=== PATIENT | female | born 1995 | race American Indian/Alaskan Native ===

== ENCOUNTER 2016-06-11 00:52 | Emergency (ER) | payer MEDICAID | END 2016-06-11 01:54 | disposition left against medical advice (07) | LOC: ED 00:52 | DX: R07.9 Chest pain, unspecified (principal); Z53.21 Procedure and treatment not carried out due to patient leaving prior to being seen by health care provider | CPT/HCPCS: 93005; 93010 ==

== ENCOUNTER 2016-11-15 15:25 | Emergency (ER) | payer MEDICAID ==
[2016-11-15 16:28] LABS: Basophils % (Auto) 0.8 % (0.0-1.8); Eosinophils % (Auto) 1.5 % (0.0-4.3); Hematocrit 36.2 % (30.3-42.9); Hemoglobin 11.8 gm/dl (10.1-14.3); Mean Corpuscular HGB Conc 33 % (30-34); Mean Corpuscular Hemoglobin 29 pg (28-32); Mean Corpuscular Volume 87 fl (79-97); Platelet Count 198 K/mm3 (140-440); Red Blood Count 4.15 M/mm3 (3.65-5.03); Red Cell Distribution Width 16.3 % (13.2-15.2)
[2016-11-15 16:44] LABS: Alanine Aminotransferase 9 units/L (7-56); Albumin 3.7 g/dL (3.9-5); Albumin/Globulin Ratio 1.2 %; Alkaline Phosphatase 39 units/L (35-129); Anion Gap 17 mmol/L; BUN/Creatinine Ratio 8.75; Blood Urea Nitrogen 7 mg/dL (7-17); Calcium 8.6 mg/dL (8.4-10.2); Carbon Dioxide 22 mmol/L (22-30); Chloride 102.8 mmol/L (98-107); Glucose 110 mg/dL (65-100); Lipase 28 units/L (13-60); Potassium 3.8 mmol/L (3.6-5.0); Sodium 138 mmol/L (137-145); Total Protein 6.7 g/dL (6.3-8.2)
[2016-11-15 17:45] LABS: Bilirubin,Urine NEG (Negative); Blood,Urine NEG (Negative); Ketones,Urine NEG (Negative); Leukocyte Esterase,Urine NEG (Negative); Mucus,Urine FEW /HPF; Nitrite,Urine NEG (Negative); Protein,Urine <15 mg/dL mg/dL (Negative); Urobilinogen,Urine < 2.0 mg/dL (<2.0)
[2016-11-15 17:52] LABS: WBC,Urine < 1.0 /HPF (0.0-6.0)
--- NOTE | 2016-11-15 19:03 | Ultrasound Report ---
FINAL REPORT EXAM: US OB \T\lt; = 14 WEEKS FETUS HISTORY: , pain . LMP unknown. Pelvic pain and cramping. TECHNIQUE: Ultrasound of the pelvis using transabdominal and transvaginal imaging PRIORS: None. FINDINGS: Uterus: Uterus is enlarged in size and normal and homogeneous in echogenicity without focal fibroid formation. The uterus measures 10.2 x 5.9 x 6.9 cm in size. There is a single early viable intrauterine gestation noted. There is a small subchorionic hemorrhage noted measuring 6.8 x 5.1 mm along the right side of the gestational sac. Intrauterine gestation: There is a single intrauterine gestation identified with both a pole and yolk sac. heart rate is monitored at 114 BPM using M-mode doppler. [place]-rump length measurement of 5.6 mm corresponds to estimated age 6 weeks 2 days with EDC 07/09/2017. Ovaries: Both ovaries appear normal in size and echogenicity with normal blood flow bilaterally. The right ovary measures 3.2 x 1.6 x 2.3 cm on the left ovary measures 2.8 x 2.2 x 2.3 cm in size. A 1 cm corpus luteum cyst in the left ovary is noted. Other: There is no evidence for solid adnexal mass is seen. There is no free fluid in the cul-de-sac. IMPRESSION: Single intrauterine viable with an approximate age of 6 weeks 2 days.
--- NOTE | 2016-11-15 20:06 | Emergency Department Report ---
ED Female HPI - General Chief complaint: Urogenital-Female Stated complaint: ABD PAIN Time Seen by Provider: 11/15/16 20:04 Source: patient Mode of arrival: Ambulatory Limitations: No Limitations - History of Present Illness Complaint: vaginal discharge, dysuria, pelvic pain - Related Data Home Medications Medication Instructions Recorded Confirmed Last Taken No Known Home Medications [No 11/05/15 11/05/15 Unknown Reported Home Medications] Allergies Allergy/AdvReac Type Severity Reaction Status Date / Time No Known Allergies Allergy Unverified 11/05/15 00:20 ED Review of Systems ROS: Stated complaint: ABD PAIN Other details as noted in HPI ED Past Medical Hx - Past Medical History Previous Medical History?: No - Surgical History Past Surgical History?: Yes Additional Surgical History: C-Sec 2014, Blood Clots noted in Abd? - Social History Smoking Status: Current Every Day Smoker Substance Use Type: Alcohol, Marijuana - Medications Home Medications: Home Medications Medication Instructions Recorded Confirmed Last Taken Type No Known Home Medications [No 11/05/15 11/05/15 Unknown History Reported Home Medications] ED Physical Exam - General Limitations: No Limitations ED Course Vital Signs 11/15/16 16:01 Temperature 97.1 F L Pulse Rate 80 Respiratory 20 Rate Blood Pressure 110/61 [Right] O2 Sat by Pulse 100 Oximetry ED Medical Decision Making - Lab Data Result diagrams: 11/15/16 16:12 11/15/16 16:12 Critical care attestation.: If time is entered above; I have spent that time in minutes in the direct care of this critically ill patient, excluding procedure time. ED Disposition Condition: Stable Referrals: PRIMARY CARE [Primary Care Provider] - 3-5 Days
[2016-11-15] MEDS ORDERED: BENADRYL PO ONE (20:57)
--- NOTE | 2016-11-15 21:07 | Emergency Department Report ---
Entered by VELVET GUTIÉRREZ, acting as scribe for WENDY MORILLO PA. ED Female HPI - General Chief complaint: Urogenital-Female Stated complaint: ABD PAIN Time Seen by Provider: 11/15/16 20:04 Source: patient Mode of arrival: Ambulatory Limitations: No Limitations - History of Present Illness Initial comments: 21 y/o female with PMHx of blood clots in uterus, constipation, chlamydia and yeast infection, presents to the ED c/o abdominal pain x 2 weeks. Associated symptoms include vaginal discharge (x1 month), nausea and vomiting but she denies diarrhea, vaginal bleeding, fever and chills, no dysuria or increased urinary frequency reported. Pain is described as cramping. Patient is 6 weeks . Reports no OBGYN visits. No alleviating or aggravating factors. NKDA. LMP: 10/10/16. MD Complaint: other (abdominal pain) Onset/Timin -: week(s) Radiation: LLQ Quality: cramping Consistency: constant Improves with: none Worsens with: none Are you Now?: Yes Last Menstrual Period: 10/10/16 EDC: 07/17/17 Associated Symptoms: vaginal discharge, abdominal pain, nausea/vomiting, other. denies: vaginal bleeding, fever/chills - Related Data Sexually active: Yes Previous Rx's Medication Instructions Recorded Last Taken Type Clotrimazole [Unwl-Rnuivvmw-3] 1 applicator VG QHS #1 cream.appl 11/15/16 Unknown Rx Pyridoxine HCl 25 mg PO Q6H PRN #1 bottle 11/15/16 Unknown Rx diphenhydrAMINE [Benadryl CAP] 25 mg PO Q8HR PRN #1 bottle 11/15/16 Unknown Rx Allergies Allergy/AdvReac Type Severity Reaction Status Date / Time No Known Allergies Allergy Unverified 11/05/15 00:20 ED Review of Systems Comment: All other systems reviewed and negative Constitutional: denies: chills, fever Gastrointestinal: abdominal pain, nausea, vomiting. denies: diarrhea Genitourinary: discharge. denies: other (vaginal bleeding ) ED Past Medical Hx - Past Medical History Previous Medical History?: No - Surgical History Past Surgical History?: Yes Additional Surgical History: C-Sec 2014, Blood Clots noted in Abd? - Social History Smoking Status: Current Every Day Smoker Substance Use Type: Alcohol, Marijuana - Medications Home Medications: Home Medications Medication Instructions Recorded Confirmed Last Taken Type Clotrimazole [Vcaj-Tcajrtxw-9] 1 applicator VG QHS #1 cream.appl 11/15/16 Unknown Rx Pyridoxine HCl 25 mg PO Q6H PRN #1 bottle 11/15/16 Unknown Rx diphenhydrAMINE [Benadryl CAP] 25 mg PO Q8HR PRN #1 bottle 11/15/16 Unknown Rx ED Physical Exam - General Limitations: No Limitations (Michelle Gutiérrez present during external/ speculum exam ) General appearance: alert, in no apparent distress - Head Head exam: Present: atraumatic, normocephalic, normal inspection - Eye Eye exam: Present: normal appearance, PERRL, EOMI Pupils: Present: normal accommodation - ENT ENT exam: Present: normal exam, normal orophraynx, mucous membranes moist, TM's normal bilaterally, normal external ear exam - Neck Neck exam: Present: normal inspection, full ROM. Absent: tenderness - Respiratory Respiratory exam: Present: normal lung sounds bilaterally. Absent: respiratory distress, wheezes, rales, rhonchi, chest wall tenderness - Cardiovascular Cardiovascular Exam: Present: regular rate, normal rhythm, normal heart sounds. Absent: systolic murmur, diastolic murmur, rubs, gallop - GI/Abdominal GI/Abdominal exam: Present: soft, normal bowel sounds. Absent: tenderness, guarding, rebound - External exam: Present: normal external exam Speculum exam: Present: normal speculum exam Bi-manual exam: Present: normal bi-manual exam, other (+cottage cheese like discharge in vaginal vault, evidence of bv and vaginal candidiasis). Absent: cervical motion tendernes, adnexal tenderness - Extremities Exam Extremities exam: Present: normal inspection, full ROM. Absent: tenderness, normal capillary refill, pedal edema, joint swelling, calf tenderness - Back Exam Back exam: Present: normal inspection, full ROM. Absent: tenderness, CVA tenderness (R), CVA tenderness (L), muscle spasm, paraspinal tenderness, vertebral tenderness, rash noted - Neurological Exam Neurological exam: Present: alert, oriented X3 - Psychiatric Psychiatric exam: Present: normal affect, normal mood - Skin Skin exam: Present: warm, dry, intact, normal color ED Course Vital Signs 11/15/16 16:01 Temperature 97.1 F L Pulse Rate 80 Respiratory 20 Rate Blood Pressure 110/61 [Right] O2 Sat by Pulse 100 Oximetry ED Medical Decision Making - Lab Data Result diagrams: 11/15/16 16:12 11/15/16 16:12 - Medical Decision Making A/P: , nausea and first trimester, yeast infection 1-patient states she is able to tolerate by mouth fluid but has nausea with food. Will give patient a trial of pyridoxine and Doxylamine, Benadryl when necessary for nausea. I referred to [email or web address] for recommendations on nausea and vomiting treatment in first trimester 2-follow-up with [facility] so single live intrauterine approximately 6 weeks with corresponding hCG level. Patient has no complaints of vaginal bleeding and has no vaginal bleeding on exam 4- on exam pt has evidence of vaginal candidiasis, will tx empirically ED Disposition Clinical Impression: Nausea & vomiting Qualifiers: Vomiting type: unspecified Vomiting Intractability: non-intractable Qualified Code(s): R11.2 - Nausea with vomiting, unspecified Qualifiers: Weeks of gestation: less than 8 weeks Qualified Code(s): Z3A.01 - Less than 8 weeks gestation of Vaginal discharge during Qualifiers: Trimester: first trimester Qualified Code(s): O26.891 - Other specified related conditions, first trimester; N89.8 - Other specified noninflammatory disorders of vagina Disposition: DC-01 TO HOME OR SELFCARE Is pt being admited?: No Does the pt Need Aspirin: No Condition: Stable Instructions: Vulvovaginal Candidiasis (ED), Morning Sickness (ED), ( ED) Prescriptions: Clotrimazole [Sfav-Tdbnxpba-3] 1 applicator VG QHS #1 cream.appl diphenhydrAMINE [Benadryl CAP] 25 mg PO Q8HR PRN #1 bottle PRN Reason: Nausea Pyridoxine HCl 25 mg PO Q6H PRN #1 bottle PRN Reason: Nausea Referrals: [facility] [Provider Group] - 3-5 Days SIMONA SEE MD [Staff Physician] - 3-5 Days Forms: Accompanied Note, Work/School Release Form(ED) Time of Disposition: 21:02 This documentation as recorded by the MARLA ponce ELIZABETH,accurately reflects the service I personally performed and the decisions made by ,WENDY MORILLO PA.
[2016-11-15 21:16] VITALS: BP 105/63
== END 2016-11-15 21:16 | disposition home or self-care (01) ==
LOC: ED 15:25
DX: O21.9 Vomiting of pregnancy, unspecified (principal); O26.891 Other specified pregnancy related conditions, first trimester; R11.0 Nausea; N89.8 Other specified noninflammatory disorders of vagina; F17.200 Nicotine dependence, unspecified, uncomplicated; F12.10 Cannabis abuse, uncomplicated
CPT/HCPCS: 36415; 76801; 76817; 80053; 81001; 83690; 84702; 84703; 85025; 87210; 87591

== ENCOUNTER 2016-12-04 23:25 | Emergency (ER) | payer MEDICAID ==
[2016-12-05 01:24] LABS: Bilirubin,Urine NEG (Negative); Blood,Urine SM (Negative); Ketones,Urine NEG (Negative); Leukocyte Esterase,Urine MOD (Negative); Mucus,Urine 3+ /HPF; Nitrite,Urine NEG (Negative); Protein,Urine <15 mg/dL mg/dL (Negative); Urobilinogen,Urine < 2.0 mg/dL (<2.0)
[2016-12-05 01:43] LABS: Alanine Aminotransferase 10 units/L (7-56); Albumin 4.3 g/dL (3.9-5); Albumin/Globulin Ratio 1.2 %; Alkaline Phosphatase 40 units/L (35-129); Anion Gap 18 mmol/L; BUN/Creatinine Ratio 11.25; Blood Urea Nitrogen 9 mg/dL (7-17); Calcium 9.3 mg/dL (8.4-10.2); Carbon Dioxide 27 mmol/L (22-30); Chloride 99.7 mmol/L (98-107); Glucose 101 mg/dL (65-100); Lipase 17 units/L (13-60); Potassium 4.3 mmol/L (3.6-5.0); Sodium 140 mmol/L (137-145)
[2016-12-05 02:06] LABS: Basophils % (Auto) 0.4 % (0.0-1.8); Eosinophils % (Auto) 0.1 % (0.0-4.3); Hematocrit 39.3 % (30.3-42.9); Hemoglobin 12.8 gm/dl (10.1-14.3); Mean Corpuscular HGB Conc 33 % (30-34); Mean Corpuscular Hemoglobin 29 pg (28-32); Mean Corpuscular Volume 88 fl (79-97); Platelet Count 173 K/mm3 (140-440); Red Blood Count 4.47 M/mm3 (3.65-5.03); Red Cell Distribution Width 16.6 % (13.2-15.2); White Blood Count 7.4 K/mm3 (4.5-11.0)
[2016-12-05 02:34] LABS: INR 1.04 (0.87-1.13)
[2016-12-05 02:35] LABS: Partial Thromboplastin Time 28.9 Sec. (24.2-36.6)
--- NOTE | 2016-12-05 03:40 | Ultrasound Report ---
FINAL REPORT PROCEDURE: US OB \T\lt; = 14 WEEKS FETUS TECHNIQUE: Real-time transabdominal sonography of the uterus, placenta, amniotic fluid, adnexa, and fetus was performed with image documentation. Measurements were obtained to determine age/size. M-mode Doppler was used to document heartbeat. CPT 28185 HISTORY: pain COMPARISON: 11/15/2016 FINDINGS: No intrauterine or ectopic is identified. The uterus measures 9.4 x 3 x 5.8 centimeters. Endometrium measures 11 millimeters in thickness. The right ovary is not identified. The left ovary measures 3 x 2.2 x 3 centimeters. There are cystic follicles. There is no mass or torsion. There is no evidence of ectopic . There is no free pelvic fluid. IMPRESSION: Normal uterus and left ovary. Right ovary is not seen. There is no demonstrated intrauterine or ectopic .
--- NOTE | 2016-12-05 03:43 | Emergency Department Report ---
ED Female HPI - General Chief complaint: Abdominal Pain Stated complaint: N/V/D/DIZZINESS Source: patient, RN notes reviewed, old records reviewed Mode of arrival: Ambulatory Limitations: No Limitations - History of Present Illness Initial comments: This is a 21-year-old female. She is previously unknown to me. Patient seen in this department on 11/15/2016, found to have an intrauterine at that time of 6 weeks and 2 days. The patient reports that she had an elective surgical termination of about a week ago. Since then she has had crampy lower abdominal pain, nausea and vomiting. No fevers or chills. No chest pain or shortness of breath. No irritative or obstructive urinary symptoms. To me she denies right lower quadrant pain. The pain is achy. It increases with palpation and range of motion and It decreases with rest. MD Complaint: vaginal bleeding, pelvic pain -: Gradual Location: suprapubic Quality: cramping Consistency: intermittent Are you Now?: No Associated Symptoms: vaginal discharge, vaginal bleeding, abdominal pain. denies: dysuria - Related Data Sexually active: Yes Previous Rx's Medication Instructions Recorded Last Taken Type Clotrimazole [Dldt-Krthqbms-5] 1 applicator VG QHS #1 cream.appl 11/15/16 Unknown Rx Pyridoxine HCl 25 mg PO Q6H PRN #1 bottle 11/15/16 Unknown Rx diphenhydrAMINE [Benadryl CAP] 25 mg PO Q8HR PRN #1 bottle 11/15/16 Unknown Rx Doxycycline [Vibramycin] 100 mg PO Q12HR #14 capsule 12/05/16 Unknown Rx Ibuprofen [Motrin] 600 mg PO Q8H PRN #30 tablet 12/05/16 Unknown Rx Ondansetron [Zofran Odt] 4 mg PO QID PRN #20 tab.rapdis 12/05/16 Unknown Rx oxyCODONE [Roxicodone] 5 mg PO Q6HR PRN #15 tablet 12/05/16 Unknown Rx Allergies Allergy/AdvReac Type Severity Reaction Status Date / Time No Known Allergies Allergy Unverified 11/05/15 00:20 ED Review of Systems ROS: Stated complaint: N/V/D/DIZZINESS Other details as noted in HPI Constitutional: denies: malaise Eyes: denies: vision change ENT: denies: epistaxis Respiratory: denies: cough Cardiovascular: denies: chest pain Gastrointestinal: abdominal pain Genitourinary: abnormal menses Musculoskeletal: denies: back pain Skin: denies: lesions Neurological: denies: weakness ED Past Medical Hx - Past Medical History Previous Medical History?: No - Surgical History Past Surgical History?: Yes Additional Surgical History: C-Sec 2014, Blood Clots noted in Abd? - Social History Smoking Status: Light Tobacco Smoker Substance Use Type: None - Medications Home Medications: Home Medications Medication Instructions Recorded Confirmed Last Taken Type Clotrimazole [Ijvb-Qvloddbv-9] 1 applicator VG QHS #1 cream.appl 11/15/16 Unknown Rx Pyridoxine HCl 25 mg PO Q6H PRN #1 bottle 11/15/16 Unknown Rx diphenhydrAMINE [Benadryl CAP] 25 mg PO Q8HR PRN #1 bottle 11/15/16 Unknown Rx Doxycycline [Vibramycin] 100 mg PO Q12HR #14 capsule 12/05/16 Unknown Rx Ibuprofen [Motrin] 600 mg PO Q8H PRN #30 tablet 12/05/16 Unknown Rx Ondansetron [Zofran Odt] 4 mg PO QID PRN #20 tab.rapdis 12/05/16 Unknown Rx oxyCODONE [Roxicodone] 5 mg PO Q6HR PRN #15 tablet 12/05/16 Unknown Rx ED Physical Exam - General Limitations: No Limitations General appearance: alert, in no apparent distress - Head Head exam: Present: atraumatic, normocephalic - Eye Eye exam: Present: normal appearance, EOMI. Absent: nystagmus - ENT ENT exam: Present: normal exam, normal orophraynx, mucous membranes moist, normal external ear exam - Neck Neck exam: Present: normal inspection, full ROM. Absent: tenderness, meningismus - Respiratory Respiratory exam: Present: normal lung sounds bilaterally. Absent: respiratory distress, wheezes, rales, rhonchi, stridor, chest wall tenderness, accessory muscle use, decreased breath sounds, prolonged expiratory - Cardiovascular Cardiovascular Exam: Present: regular rate, normal rhythm, normal heart sounds. Absent: bradycardia, tachycardia, irregular rhythm, systolic murmur, diastolic murmur, rubs, gallop - GI/Abdominal GI/Abdominal exam: Present: soft, normal bowel sounds. 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 Absent: adnexal mass - Extremities Exam Extremities exam: Present: normal inspection, full ROM, normal capillary refill. Absent: pedal edema, joint swelling, calf tenderness - Back Exam Back exam: Present: normal inspection, full ROM. Absent: tenderness, CVA tenderness (R), CVA tenderness (L), muscle spasm, paraspinal tenderness, vertebral tenderness - Neurological Exam Neurological exam: Present: alert, oriented X3, normal gait, other (Extraocular movements intact. Tongue midline. No facial droop. Facial sensation intact to light touch in the V1, V2, V3 distribution bilaterally. 5 and 5 strength in 4 extremities.. Sensation is intact to light touch in 4 extremities.). Absent : motor sensory deficit - Psychiatric Psychiatric exam: Present: normal affect, normal mood - Skin Skin exam: Present: warm, dry, intact, normal color. Absent: rash ED Course Vital Signs 12/04/16 12/05/16 12/05/16 23:30 02:39 04:33 Temperature 97.5 F L Pulse Rate 66 60 57 L Respiratory 18 18 18 Rate Blood Pressure 116/67 109/66 95/55 [Right] O2 Sat by Pulse 100 99 100 Oximetry ED Medical Decision Making - Lab Data Result diagrams: 12/05/16 00:49 12/05/16 00:49 Vital Signs 12/04/16 12/05/16 12/05/16 23:30 02:39 04:33 Temperature 97.5 F L Pulse Rate 66 60 57 L Respiratory 18 18 18 Rate Blood Pressure 116/67 109/66 95/55 [Right] O2 Sat by Pulse 100 99 100 Oximetry Lab Results 12/05/16 12/05/16 12/05/16 Range/Units 00:33 00:49 00:49 WBC 7.4 (4.5-11.0) K/mm3 RBC 4.47 (3.65-5.03) M/mm3 Hgb 12.8 (10.1-14.3) gm/dl Hct 39.3 (30.3-42.9) % MCV 88 (79-97) fl MCH 29 (28-32) pg MCHC 33 (30-34) % RDW 16.6 H (13.2-15.2) % Plt Count 173 (140-440) K/mm3 Lymph % (Auto) 11.7 L (13.4-35.0) % [place] % (Auto) 8.5 H (0.0-7.3) % Eos % (Auto) 0.1 (0.0-4.3) % Baso % (Auto) 0.4 (0.0-1.8) % Lymph # 0.9 L (1.2-5.4) K/mm3 [place] # 0.6 (0.0-0.8) K/mm3 Eos # 0.0 (0.0-0.4) K/mm3 Baso # 0.0 (0.0-0.1) K/mm3 Seg Neutrophils % 79.3 H (40.0-70.0) % Seg Neutrophils # 5.9 (1.8-7.7) K/mm3 PT (12.2-14.9) Sec. INR (0.87-1.13) APTT (24.2-36.6) Sec. Sodium (137-145) mmol/L Potassium (3.6-5.0) mmol/L Chloride (98-107) mmol/L Carbon Dioxide (22-30) mmol/L Anion Gap mmol/L BUN (7-17) mg/dL Creatinine (0.7-1.2) mg/dL Estimated GFR ml/min BUN/Creatinine Ratio % Glucose (65-100) mg/dL Calcium (8.4-10.2) mg/dL Total Bilirubin (0.1-1.2) mg/dL AST (5-40) units/L ALT (7-56) units/L Alkaline Phosphatase (35-129) units/L Total Protein (6.3-8.2) g/dL Albumin (3.9-5) g/dL Albumin/Globulin Ratio % Lipase (13-60) units/L HCG, Qual Positive (Negative) HCG, Quant (0-4) mIU/mL Urine Color Yellow (Yellow) Urine Turbidity Clear (Clear) Urine pH 6.0 (5.0-7.0) Ur Specific [place] 1.019 (1.003-1.030) Urine Protein <15 mg/dl (Negative) mg/dL Urine Glucose (UA) Neg (Negative) mg/dL Urine Ketones Neg (Negative) mg/dL Urine Blood Sm (Negative) Urine Nitrite Neg (Negative) Urine Bilirubin Neg (Negative) Urine Urobilinogen < 2.0 (<2.0) mg/dL Ur Leukocyte Esterase Mod (Negative) Urine WBC (Auto) 25.0 H (0.0-6.0) /HPF Urine RBC (Auto) 4.0 (0.0-6.0) /HPF U Epithel Cells (Auto) 3.0 (0-13.0) /HPF Urine Mucus 3+ /HPF Blood Type Antibody Screen SHANTANU Antibody Screen 12/05/16 12/05/16 12/05/16 Range/Units 00:49 00:49 00:49 WBC (4.5-11.0) K/mm3 RBC (3.65-5.03) M/mm3 Hgb (10.1-14.3) gm/dl Hct (30.3-42.9) % MCV (79-97) fl MCH (28-32) pg MCHC (30-34) % RDW (13.2-15.2) % Plt Count (140-440) K/mm3 Lymph % (Auto) (13.4-35.0) % [place] % (Auto) (0.0-7.3) % Eos % (Auto) (0.0-4.3) % Baso % (Auto) (0.0-1.8) % Lymph # (1.2-5.4) K/mm3 [place] # (0.0-0.8) K/mm3 Eos # (0.0-0.4) K/mm3 Baso # (0.0-0.1) K/mm3 Seg Neutrophils % (40.0-70.0) % Seg Neutrophils # (1.8-7.7) K/mm3 PT 14.1 (12.2-14.9) Sec. INR 1.04 (0.87-1.13) APTT 28.9 (24.2-36.6) Sec. Sodium 140 (137-145) mmol/L Potassium 4.3 (3.6-5.0) mmol/L Chloride 99.7 (98-107) mmol/L Carbon Dioxide 27 (22-30) mmol/L Anion Gap 18 mmol/L BUN 9 (7-17) mg/dL Creatinine 0.8 (0.7-1.2) mg/dL Estimated GFR > 60 ml/min BUN/Creatinine Ratio 11.25 % Glucose 101 H (65-100) mg/dL Calcium 9.3 (8.4-10.2) mg/dL Total Bilirubin 0.30 (0.1-1.2) mg/dL AST 13 (5-40) units/L ALT 10 (7-56) units/L Alkaline Phosphatase 40 (35-129) units/L Total Protein 8.0 (6.3-8.2) g/dL Albumin 4.3 (3.9-5) g/dL Albumin/Globulin Ratio 1.2 % Lipase 17 (13-60) units/L HCG, Qual (Negative) HCG, Quant (0-4) mIU/mL Urine Color (Yellow) Urine Turbidity (Clear) Urine pH (5.0-7.0) Ur Specific [place] (1.003-1.030) Urine Protein (Negative) mg/dL Urine Glucose (UA) (Negative) mg/dL Urine Ketones (Negative) mg/dL Urine Blood (Negative) Urine Nitrite (Negative) Urine Bilirubin (Negative) Urine Urobilinogen (<2.0) mg/dL Ur Leukocyte Esterase (Negative) Urine WBC (Auto) (0.0-6.0) /HPF Urine RBC (Auto) (0.0-6.0) /HPF U Epithel Cells (Auto) (0-13.0) /HPF Urine Mucus /HPF Blood Type O POSITIVE Antibody Screen TNR SHANTANU Antibody Screen Negative 12/05/16 Range/Units 00:49 WBC (4.5-11.0) K/mm3 RBC (3.65-5.03) M/mm3 Hgb (10.1-14.3) gm/dl Hct (30.3-42.9) % MCV (79-97) fl MCH (28-32) pg MCHC (30-34) % RDW (13.2-15.2) % Plt Count (140-440) K/mm3 Lymph % (Auto) (13.4-35.0) % [place] % (Auto) (0.0-7.3) % Eos % (Auto) (0.0-4.3) % Baso % (Auto) (0.0-1.8) % Lymph # (1.2-5.4) K/mm3 [place] # (0.0-0.8) K/mm3 Eos # (0.0-0.4) K/mm3 Baso # (0.0-0.1) K/mm3 Seg Neutrophils % (40.0-70.0) % Seg Neutrophils # (1.8-7.7) K/mm3 PT (12.2-14.9) Sec. INR (0.87-1.13) APTT (24.2-36.6) Sec. Sodium (137-145) mmol/L Potassium (3.6-5.0) mmol/L Chloride (98-107) mmol/L Carbon Dioxide (22-30) mmol/L Anion Gap mmol/L BUN (7-17) mg/dL Creatinine (0.7-1.2) mg/dL Estimated GFR ml/min BUN/Creatinine Ratio % Glucose (65-100) mg/dL Calcium (8.4-10.2) mg/dL Total Bilirubin (0.1-1.2) mg/dL AST (5-40) units/L ALT (7-56) units/L Alkaline Phosphatase (35-129) units/L Total Protein (6.3-8.2) g/dL Albumin (3.9-5) g/dL Albumin/Globulin Ratio % Lipase (13-60) units/L HCG, Qual (Negative) HCG, Quant 23.42 H (0-4) mIU/mL Urine Color (Yellow) Urine Turbidity (Clear) Urine pH (5.0-7.0) Ur Specific [place] (1.003-1.030) Urine Protein (Negative) mg/dL Urine Glucose (UA) (Negative) mg/dL Urine Ketones (Negative) mg/dL Urine Blood (Negative) Urine Nitrite (Negative) Urine Bilirubin (Negative) Urine Urobilinogen (<2.0) mg/dL Ur Leukocyte Esterase (Negative) Urine WBC (Auto) (0.0-6.0) /HPF Urine RBC (Auto) (0.0-6.0) /HPF U Epithel Cells (Auto) (0-13.0) /HPF Urine Mucus /HPF Blood Type Antibody Screen SHANTANU Antibody Screen - Radiology Data Radiology results: report reviewed, image reviewed Transvaginal ultrasound demonstrates Normal-appearing left ovary, no evidence of torsion, no evidence of intrauterine or ectopic . Patient had pelvic ultrasound performed 11/15/2016, at that point in time, demonstrated intrauterine with normal-appearing ovaries - Medical Decision Making Differential diagnosis: Retained products of conception, urinary tract infection , pelvic pain after elective termination of Assessment and plan: 21-year-old female with abdominal pain and vaginal bleeding after elective termination of approximately 1-1/2-2 weeks ago. She is afebrile with reassuring vital signs. Quantitative hCG has appropriately decreased, given her recent surgical procedure, I would expect her to have some baseline level of positive hCG. Urinalysis equivocal, ultrasound demonstrates no evidence of intrauterine or ectopic . Patient felt improved after pain medication. Patient will be discharged with pain medication, nausea medication, empiric antibiotics, instructions to follow up with outpatient gynecology. Return precautions are reviewed. Ultrasound does not demonstrate retained products of conception. Urinalysis demonstrates positive leukocytes and white blood cells. Unlikely to be pelvic inflammatory disease, we'll treat empirically for possible infection status post recent instrumentation. Critical care attestation.: If time is entered above; I have spent that time in minutes in the direct care of this critically ill patient, excluding procedure time. ED Disposition Clinical Impression: Abdominal pain Disposition: DC-01 TO HOME OR SELFCARE Is pt being admited?: No Does the pt Need Aspirin: No Condition: Stable Instructions: Chronic Pelvic Pain in Women (ED) Additional Instructions: Take the pain medication, nausea medication, antibiotics as directed. Cultures was sent today, results will be available in the next 3-5 days. Please have a primary care doctor contact the medical records department to obtain culture results. Return to the ER right away for a few pain, worsening pain, migration of pain, fevers, chills, confusion, intractable nausea or vomiting, inability to tolerate liquid feeds. When taking the oxycodone, do not drive, consume alcohol, or make important decisions. Avoid exposure to the somewhat when taking doxycycline, and make certain to eat a meal when taking ibuprofen or doxycycline, as his medications may cause upset stomach. Rest, and avoid heavy lifting. Do not resume sexual activity or intimacy until cleared by either gynecology or her primary care doctor. Follow up with a recruit instructor within the next 7-10 days. Prescriptions: Doxycycline [Vibramycin] 100 mg PO Q12HR #14 capsule Ibuprofen [Motrin] 600 mg PO Q8H PRN #30 tablet PRN Reason: Pain Ondansetron [Zofran Odt] 4 mg PO QID PRN #20 tab.rapdis PRN Reason: Nausea oxyCODONE [Roxicodone] 5 mg PO Q6HR PRN #15 tablet PRN Reason: Pain Referrals: PRIMARY CARE, [Primary Care Provider] - 3-5 Days [facility] [Provider Group] - 3-5 Days [facility] [Provider Group] - 3-5 Days [facility] [Provider Group] - 3-5 Days
[2016-12-05] MEDS ORDERED: MOTRIN PO ONE (04:19)
[2016-12-05] MEDS ORDERED: VIBRAMYCIN PO ONE (04:19)
[2016-12-05] MEDS ORDERED: ROXICODONE PO ONE (04:19)
[2016-12-05 04:33] VITALS: BP 95/55
== END 2016-12-05 05:58 | disposition home or self-care (01) ==
LOC: ED 23:25
DX: R10.30 Lower abdominal pain, unspecified (principal); F17.200 Nicotine dependence, unspecified, uncomplicated
CPT/HCPCS: 36415; 76801; 80053; 81001; 83690; 84702; 84703; 85025; 85610; 85730; 86850; 86900; 86901; 87591

== ENCOUNTER 2016-12-27 13:08 | Emergency (ER) | payer MEDICAID ==
[2016-12-27 14:11] LABS: Basophils % (Auto) 0.4 % (0.0-1.8); Eosinophils % (Auto) 0.6 % (0.0-4.3); Hematocrit 34.6 % (30.3-42.9); Hemoglobin 11.3 gm/dl (10.1-14.3); Mean Corpuscular HGB Conc 33 % (30-34); Mean Corpuscular Hemoglobin 29 pg (28-32); Mean Corpuscular Volume 89 fl (79-97); Platelet Count 176 K/mm3 (140-440); Red Blood Count 3.91 M/mm3 (3.65-5.03); Red Cell Distribution Width 16.1 % (13.2-15.2); White Blood Count 6.9 K/mm3 (4.5-11.0)
[2016-12-27 14:28] LABS: Anion Gap 16 mmol/L; Blood Urea Nitrogen 6 mg/dL (7-17); Calcium 8.7 mg/dL (8.4-10.2); Carbon Dioxide 25 mmol/L (22-30); Chloride 102.8 mmol/L (98-107); Glucose 93 mg/dL (65-100); Potassium 3.9 mmol/L (3.6-5.0); Sodium 140 mmol/L (137-145)
[2016-12-27 15:37] LABS: Bilirubin,Urine NEG (Negative); Blood,Urine LG (Negative); Ketones,Urine NEG (Negative); Leukocyte Esterase,Urine MOD (Negative); Mucus,Urine 3+ /HPF; Nitrite,Urine NEG (Negative)
--- NOTE | 2016-12-27 22:31 | Emergency Department Report ---
ED Female HPI - General Chief complaint: Abdominal Pain Stated complaint: PELVIC PAIN/DIZZY/VOMITING Time Seen by Provider: 12/27/16 22:27 Source: patient, RN notes reviewed, old records reviewed Mode of arrival: Ambulatory Limitations: No Limitations - History of Present Illness Initial comments: This is a 21-year-old female. I have evaluated the patient in the past. On , I saw the patient for abdominal cramping and vaginal bleeding. Patient had an intrauterine of 6 weeks and 2 days on November 15, she had an elective surgical termination, and after the termination has had persisting crampy lower abdominal pain. The patient had a transvaginal ultrasound at that time, which demonstrated no retained products of conception. The patient was prescribed doxycycline empirically. The patient indicates she did not feel the doxycycline prescription. Subsequent culture results demonstrated the presence of chlamydia, with negative gonorrhea. The patient never contacted medical records for her culture results as she was instructed. MD Complaint: vaginal bleeding, pelvic pain -: Gradual Location: suprapubic Severity: moderate Quality: cramping Consistency: intermittent Improves with: none Worsens with: none Are you Now?: No Associated Symptoms: vaginal bleeding, abdominal pain. denies: vaginal discharge, nausea/vomiting, fever/chills, headaches, loss of appetite, dysuria, hematuria, rash, shortness of breath, syncope, weakness - Related Data Sexually active: Yes Previous Rx's Medication Instructions Recorded Last Taken Type Doxycycline [Vibramycin] 100 mg PO Q12HR #28 capsule 12/28/16 Unknown Rx Ibuprofen [Motrin] 600 mg PO Q8H PRN #30 tablet 12/28/16 Unknown Rx Ondansetron [Zofran Odt] 4 mg PO QID PRN #20 tab.rapdis 12/28/16 Unknown Rx Allergies Allergy/AdvReac Type Severity Reaction Status Date / Time No Known Allergies Allergy Verified 12/27/16 13:57 ED Review of Systems ROS: Stated complaint: PELVIC PAIN/DIZZY/VOMITING Other details as noted in HPI Constitutional: denies: fever Eyes: denies: vision change ENT: denies: epistaxis Respiratory: denies: cough Cardiovascular: denies: chest pain Gastrointestinal: abdominal pain Genitourinary: abnormal menses Musculoskeletal: back pain Skin: denies: lesions Neurological: denies: weakness Psychiatric: anxiety ED Past Medical Hx - Past Medical History Previous Medical History?: No - Surgical History Additional Surgical History: C-Sec 2014, Blood Clots noted in Abd? - Social History Smoking Status: Current Every Day Smoker Substance Use Type: Alcohol, Marijuana - Medications Home Medications: Home Medications Medication Instructions Recorded Confirmed Last Taken Type Doxycycline [Vibramycin] 100 mg PO Q12HR #28 capsule 12/28/16 Unknown Rx Ibuprofen [Motrin] 600 mg PO Q8H PRN #30 tablet 12/28/16 Unknown Rx Ondansetron [Zofran Odt] 4 mg PO QID PRN #20 tab.rapdis 12/28/16 Unknown Rx ED Physical Exam - General Limitations: No Limitations General appearance: alert, in no apparent distress - Head Head exam: Present: atraumatic, normocephalic - Eye Eye exam: Present: normal appearance, EOMI. Absent: nystagmus - ENT ENT exam: Present: normal exam, normal orophraynx, mucous membranes moist, normal external ear exam - Neck Neck exam: Present: normal inspection, full ROM. Absent: tenderness, meningismus - Respiratory Respiratory exam: Present: normal lung sounds bilaterally. Absent: respiratory distress, wheezes, rales, rhonchi, stridor, chest wall tenderness, accessory muscle use, decreased breath sounds, prolonged expiratory - Cardiovascular Cardiovascular Exam: Present: regular rate, normal rhythm, normal heart sounds. Absent: systolic murmur, diastolic murmur, rubs, gallop - GI/Abdominal GI/Abdominal exam: Present: soft, normal bowel sounds. Absent: distended, tenderness, guarding, rebound, rigid, pulsatile mass - Speculum exam: Present: other (patient declined a repeat gynecologic examination ) - Extremities Exam Extremities exam: Present: normal inspection, full ROM, normal capillary refill. Absent: tenderness, pedal edema, joint swelling, calf tenderness - Back Exam Back exam: Present: normal inspection, full ROM. Absent: tenderness, CVA tenderness (R), CVA tenderness (L), muscle spasm, paraspinal tenderness, vertebral tenderness - Neurological Exam Neurological exam: Present: alert, oriented X3, normal gait, other (Extraocular movements intact. Tongue midline. No facial droop. Facial sensation intact to light touch in the V1, V2, V3 distribution bilaterally. 5 and 5 strength in 4 extremities.. Sensation is intact to light touch in 4 extremities.). Absent : motor sensory deficit - Psychiatric Psychiatric exam: Present: normal affect, normal mood, anxious - Skin Skin exam: Present: warm, dry, intact, normal color. Absent: rash ED Course Vital Signs 12/27/16 13:50 Temperature 98.9 F Pulse Rate 86 Respiratory 18 Rate Blood Pressure 117/92 O2 Sat by Pulse 100 Oximetry ED Medical Decision Making - Lab Data Result diagrams: 12/27/16 14:01 12/27/16 14:01 Vital Signs 12/27/16 13:50 Temperature 98.9 F Pulse Rate 86 Respiratory 18 Rate Blood Pressure 117/92 O2 Sat by Pulse 100 Oximetry Lab Results 12/27/16 12/27/16 12/27/16 Range/Units 14:01 14:01 14:01 WBC 6.9 (4.5-11.0) K/mm3 RBC 3.91 (3.65-5.03) M/mm3 Hgb 11.3 (10.1-14.3) gm/dl Hct 34.6 (30.3-42.9) % MCV 89 (79-97) fl MCH 29 (28-32) pg MCHC 33 (30-34) % RDW 16.1 H (13.2-15.2) % Plt Count 176 (140-440) K/mm3 Lymph % (Auto) 14.4 (13.4-35.0) % [place] % (Auto) 12.9 H (0.0-7.3) % Eos % (Auto) 0.6 (0.0-4.3) % Baso % (Auto) 0.4 (0.0-1.8) % Lymph # 1.0 L (1.2-5.4) K/mm3 [place] # 0.9 H (0.0-0.8) K/mm3 Eos # 0.0 (0.0-0.4) K/mm3 Baso # 0.0 (0.0-0.1) K/mm3 Seg Neutrophils % 71.7 H (40.0-70.0) % Seg Neutrophils # 4.9 (1.8-7.7) K/mm3 Sodium 140 (137-145) mmol/L Potassium 3.9 (3.6-5.0) mmol/L Chloride 102.8 (98-107) mmol/L Carbon Dioxide 25 (22-30) mmol/L Anion Gap 16 mmol/L BUN 6 L (7-17) mg/dL Creatinine 0.6 L (0.7-1.2) mg/dL Estimated GFR > 60 ml/min BUN/Creatinine Ratio 10.00 % Glucose 93 (65-100) mg/dL Calcium 8.7 (8.4-10.2) mg/dL HCG, Qual Negative (Negative) Urine Color (Yellow) Urine Turbidity (Clear) Urine pH (5.0-7.0) Ur Specific [place] (1.003-1.030) Urine Protein (Negative) mg/dL Urine Glucose (UA) (Negative) mg/dL Urine Ketones (Negative) mg/dL Urine Blood (Negative) Urine Nitrite (Negative) Urine Bilirubin (Negative) Urine Urobilinogen (<2.0) mg/dL Ur Leukocyte Esterase (Negative) Urine WBC (Auto) (0.0-6.0) /HPF Urine RBC (Auto) (0.0-6.0) /HPF U Epithel Cells (Auto) (0-13.0) /HPF Urine Mucus /HPF // Range/Units 15:20 WBC (4.5-11.0) K/mm3 RBC (3.65-5.03) M/mm3 Hgb (10.1-14.3) gm/dl Hct (30.3-42.9) % MCV (79-97) fl MCH (28-32) pg MCHC (30-34) % RDW (13.2-15.2) % Plt Count (140-440) K/mm3 Lymph % (Auto) (13.4-35.0) % [place] % (Auto) (0.0-7.3) % Eos % (Auto) (0.0-4.3) % Baso % (Auto) (0.0-1.8) % Lymph # (1.2-5.4) K/mm3 [place] # (0.0-0.8) K/mm3 Eos # (0.0-0.4) K/mm3 Baso # (0.0-0.1) K/mm3 Seg Neutrophils % (40.0-70.0) % Seg Neutrophils # (1.8-7.7) K/mm3 Sodium (137-145) mmol/L Potassium (3.6-5.0) mmol/L Chloride (98-107) mmol/L Carbon Dioxide (22-30) mmol/L Anion Gap mmol/L BUN (7-17) mg/dL Creatinine (0.7-1.2) mg/dL Estimated GFR ml/min BUN/Creatinine Ratio % Glucose (65-100) mg/dL Calcium (8.4-10.2) mg/dL HCG, Qual (Negative) Urine Color Yellow (Yellow) Urine Turbidity Clear (Clear) Urine pH 5.0 (5.0-7.0) Ur Specific [place] 1.027 (1.003-1.030) Urine Protein 30 mg/dl (Negative) mg/dL Urine Glucose (UA) Neg (Negative) mg/dL Urine Ketones Neg (Negative) mg/dL Urine Blood Lg (Negative) Urine Nitrite Neg (Negative) Urine Bilirubin Neg (Negative) Urine Urobilinogen 2.0 (<2.0) mg/dL Ur Leukocyte Esterase Mod (Negative) Urine WBC (Auto) 17.0 H (0.0-6.0) /HPF Urine RBC (Auto) 12.0 (0.0-6.0) /HPF U Epithel Cells (Auto) 5.0 (0-13.0) /HPF Urine Mucus 3+ /HPF - Radiology Data Radiology results: report reviewed, image reviewed Pelvic ultrasound demonstrates no evidence of torsion. Ovarian cysts is suggested. No retained products of conception are noted. No evidence of ovarian torsion. - Medical Decision Making Differential diagnosis: Chlamydia, pelvic inflammatory disease, retained products of conception Assessment and plan: 21-year-old female with persistent crampy lower abdominal pain, noncompliance with doxycycline, testis urologically positive for chlamydia on recent evaluation. Patient has failed follow-up, and she did not take her antibiotics. The importance of close follow-up, and antibiotic compliance were emphasized to the patient, and she verbalized understanding. Patient was further instructed that she would need further outpatient testing for HIV, syphilis and hepatitis. She indicates that she will actually follow up and follow her recommended instructions. She will be discharged at this time. Return precautions are reviewed. Critical care attestation.: If time is entered above; I have spent that time in minutes in the direct care of this critically ill patient, excluding procedure time. ED Disposition Clinical Impression: Chlamydia infection Disposition: DC-01 TO HOME OR SELFCARE Is pt being admited?: No Does the pt Need Aspirin: No Condition: Stable Instructions: Chlamydia Infection (ED), Pelvic Inflammatory Disease (ED) Additional Instructions: Recent cultures demonstrated the presence of chlamydia. your pelvic ultrasound was within normal limits. Given all this, you'll be treated empirically for disease called pelvic inflammatory disease. We typically treat young females with unexplained lower abdominal pain to protect your ability to have children safely in the future. Cultures were sent today, and results will be available next 3-5 days. Please have your primary care doctor call the medical records department to obtain your culture results. Take the antibiotic therapy as directed. Take the nausea medication and pain medication as directed. I recommend outpatient testing for sexually transmitted diseases, including hepatitis, syphilis and HIV. I also recommend that you abstain from sexual activity until you have completed her antibiotic therapy, a physician states that it is safe for you to resume sexual activity, and any partners that you have been sexually active with have been tested/treated/evaluated for sexual transmitted diseases. Please follow-up with physician within 3-5 days. I recommend that you return to the ER right away with worsening pain, migration of pain, intractable nausea/vomiting, inability tolerate liquid feeds. Referrals: PRIMARY CARE, [Primary Care Provider] - 3-5 Days [facility] [Provider Group] - 3-5 Days [facility] [Provider Group] - 3-5 Days [facility] [Provider Group] - 3-5 Days Forms: STI Treatment and Prevention
--- NOTE | 2016-12-28 00:39 | Ultrasound Report ---
FINAL REPORT PROCEDURE: US TRANSVAGINAL TECHNIQUE: Real-time transabdominal sonography in multiple planes of the pelvis was performed. The pelvic structures were not optimally visualized. Transvaginal sonography was then performed to better evaluate the structures and/or abnormalities described below with image documentation. Grayscale, color flow Doppler imaging and velocity spectral waveform analysis of the ovaries was employed (duplex imaging). CPT 07853, 14347, [place] [address]12 HISTORY: pelvic pain r out retained POC COMPARISON: 12/04/2016 FINDINGS: UTERUS Size: 7.3 x 4.5 x 4.8 cm. Endometrial thickness: 21 mm. Orientation: anteverted. Cervix: Normal. Fibroids/masses: None. RIGHT Ovary: 3.6 x 2.3 x 2.2 cm. Appearance: Normal. Doppler images: Normal spectral waveforms and color flow. The systolic and diastolic velocities are within normal limits. LEFT Ovary: 4.6 x 3.8 x 3.4 cm. Appearance: Complex cyst on the left ovary measures up to 3.7 centimeters. Doppler images: Normal spectral waveforms and color flow. The systolic and diastolic velocities are within normal limits. Pelvic fluid: None. Other: None. IMPRESSION: There is a thickened endometrial pattern. The uterus is otherwise normal. Complex cyst left ovary measures up to 3.7 centimeters. The right ovary has a normal appearance.
--- NOTE | 2016-12-28 00:41 | Ultrasound Report ---
FINAL REPORT PROCEDURE: Ultrasound pelvis, transabdominal and transvaginal with Doppler imaging TECHNIQUE: Real-time transabdominal sonography in multiple planes of the pelvis was performed. The pelvic structures were not optimally visualized. Transvaginal sonography was then performed to better evaluate the structures and/or abnormalities described below with image documentation. Grayscale, color flow Doppler imaging and velocity spectral waveform analysis of the ovaries was employed (duplex imaging). CPT 39212, 96895, and 08459 HISTORY: pelvic pain r out retained POC COMPARISON: 12/04/2016 FINDINGS: UTERUS Size: 7.3 x 4.5 x 4.8 cm. Endometrial thickness: 21 mm. Orientation: anteverted. Cervix: Normal. Fibroids/masses: None. RIGHT Ovary: 3.6 x 2.3 x 2.2 cm. Appearance: Normal. Doppler images: Normal spectral waveforms and color flow. The systolic and diastolic velocities are within normal limits. LEFT Ovary: 4.6 x 3.8 x 3.4 cm. Appearance: Complex cyst on the left ovary measures up to 3.7 centimeters. Doppler images: Normal spectral waveforms and color flow. The systolic and diastolic velocities are within normal limits. Pelvic fluid: None. Other: None. IMPRESSION: There is a thickened endometrial pattern. The uterus is otherwise normal. Complex cyst left ovary measures up to 3.7 centimeters. The right ovary has a normal appearance.
[2016-12-28] MEDS ORDERED: XYLOCAINE 1% MPF 5 mL INFILTRATI ONE (00:52)
[2016-12-28] MEDS ORDERED: ROXICODONE PO ONE (00:52)
[2016-12-28] MEDS ORDERED: MOTRIN PO ONE (00:52)
[2016-12-28] MEDS ORDERED: ROCEPHIN IM ONE (00:52)
[2016-12-28] MEDS ORDERED: VIBRAMYCIN PO ONE (00:52)
[2016-12-28 01:40] VITALS: BP 112/51
== END 2016-12-28 01:40 | disposition home or self-care (01) ==
LOC: ED 13:08
DX: A74.9 Chlamydial infection, unspecified (principal); F12.90 Cannabis use, unspecified, uncomplicated; F17.200 Nicotine dependence, unspecified, uncomplicated
CPT/HCPCS: 36415; 76830; 80048; 81001; 84703; 85025; 93975; 96372; 99284; J0696

== ENCOUNTER 2017-06-16 11:41 | Emergency (ER) | payer MEDICAID ==
[2017-06-16] MEDS ORDERED: TYLENOL PO ONE (14:29)
--- NOTE | 2017-06-16 15:02 | Emergency Department Report ---
HPI - HPI HPI: The patient is a 22-year-old female presents for evaluation of chest pain and abdominal pain. The patient reports 1 month of on and off midsternal chest pain , lasting for seconds at a time, sharp in quality, severe when present. She has a secondary complaint of one week of suprapubic abdominal pain, crampy in quality, mild in severity, currently 2/10 in severity, exacerbated with urination. She reports associated dysuria. The patient denies fever, neck pain , parasthesias, dyspnea, cough, hemoptysis, palpitations, dizziness, syncope, unilateral leg swelling, calf muscle pain. Patient also denies cocaine or other stimulant use, history of DVT or PE, recent immobilization, or history of cancer. <JUAN C BUCHANAN - Last Filed: 06/16/17 14:52> <ELBA HERNANDEZ - Last Filed: 06/16/17 17:11> - General Chief Complaint: Urogenital-Female Time Seen by Provider: 06/16/17 13:28 ED Past Medical Hx - Past Medical History Previous Medical History?: No - Surgical History Past Surgical History?: Yes Additional Surgical History: C-Sec 2014, Blood Clots noted in Abd? - Social History Smoking Status: Current Every Day Smoker Substance Use Type: Alcohol <JUAN C BUCHANAN - Last Filed: 06/16/17 14:52> <ELBA HERNANDEZ - Last Filed: 06/16/17 17:11> - Medications Home Medications: Home Medications Medication Instructions Recorded Confirmed Last Taken Type Doxycycline [Vibramycin] 100 mg PO Q12HR #28 capsule 12/28/16 Unknown Rx Ibuprofen [Motrin] 600 mg PO Q8H PRN #30 tablet 12/28/16 Unknown Rx Ondansetron [Zofran Odt] 4 mg PO QID PRN #20 tab.rapdis 12/28/16 Unknown Rx metroNIDAZOLE [Metronidazole] 500 mg PO BID #14 tablet 06/16/17 Unknown Rx ED Review of Systems ROS: Stated complaint: CHEST PAIN/STD Other details as noted in HPI Constitutional: denies: fever ENT: denies: throat or neck pain Respiratory: denies: cough, shortness of breath Cardiovascular: reports chest pain Endocrine: denies unexplained weight loss or gain Gastrointestinal: reports abdominal pain, nausea Genitourinary: reports dysuria Musculoskeletal: denies: leg swelling Skin: denies: rash Neurological: denies: headache Hematological/Lymphatic: denies: easy bleeding or easy bruising Psych: denies sadness or hopelessness <JUAN C BUCHANAN P - Last Filed: 06/16/17 14:52> ROS: Stated complaint: CHEST PAIN/STD Other details as noted in HPI <ELBA HERNANDEZ - Last Filed: 06/16/17 17:11> Physical Exam - Physical Exam Vital Signs: Vital Signs 06/16/17 06/16/17 11:56 14:33 Temperature 97.8 F Pulse Rate 70 Respiratory 16 18 Rate Blood Pressure 114/80 O2 Sat by Pulse 98 Oximetry Physical Exam: General: well-nourished, well-developed, no acute distress Head: Normocephalic, atraumatic Eyes: normal sclera ENT: Mucous membranes are pink and moist Neck: trachea midline, neck supple, No neck stiffness, no cervical adenopathy Respiratory: Breath sounds equal bilaterally, no wheezing, rales, or rhonchi Cardio: S1 and S2 present, no murmurs, rubs, gallops, capillary refill is brisk Abdomen: Normoactive bowel sounds, soft abdomen, suprapubic tenderness to palpation present, no upper abdominal tenderness or tenderness at McBurney's point, no rigidity, no guarding or rebound tenderness Musc: No pitting edema Skin: No rash Neuro: no facial drooping, normal speech Psych: Normal affect <JUAN C BUCHANAN P - Last Filed: 06/16/17 14:52> - Physical Exam Vital Signs: Vital Signs 06/16/17 06/16/17 11:56 14:33 Temperature 97.8 F Pulse Rate 70 Respiratory 16 18 Rate Blood Pressure 114/80 O2 Sat by Pulse 98 Oximetry Physical Exam: : External vaginal no lesions appreciated, internal vaginal: Vaginal discharge with odor that is thin and white. Cervix os closed no adnexal tenderness or adnexal masses, no cervical motion tenderness. Uterus is not enlarged. No pelvic tenderness. <ELBA HERNANDEZ - Last Filed: 06/16/17 17:11> ED Course Vital Signs 02/05/18 02/05/18 11:56 14:33 Temperature 97.8 F Pulse Rate 70 Respiratory 16 18 Rate Blood Pressure 114/80 O2 Sat by Pulse 98 Oximetry <DEWAYNEJUAN C P - Last Filed: 06/16/17 14:52> Vital Signs 06/16/17 06/16/17 11:56 14:33 Temperature 97.8 F Pulse Rate 70 Respiratory 16 18 Rate Blood Pressure 114/80 O2 Sat by Pulse 98 Oximetry <MAYRAKASIAKATHLEENPark Manish - Last Filed: 06/16/17 17:11> ED Medical Decision Making - Medical Decision Making The patient was seen and examined by myself. The patient is placed on a diagnostic cardiac sonographer and continuous pulse ox. On initial evaluation, the patient was found to be in no distress. Evaluation orders are placed. Lab results were non- concerning including WBC, hemoglobin, hematocrit, electrolytes, renal function, LFTs, lipase, and urinalysis. The patient was reevaluated and reported that their symptoms were markedly improved. The patient is stable for discharge with outpatient follow-up. The patient is given follow-up and return instructions. The patient expressed understanding and agreed with the plan. The patient is discharged in stable condition. <JUAN C BUCHANAN - Last Filed: 06/16/17 14:52> - Medical Decision Making Patient has been evaluated by this provider. Discussed the patient that her wet prep came back positive for greater than 20% clue cells. Gave patient a option to be treated for STDs and she wishes to be at this time. I discussed the patient to be a Rocephin shot 250 mg IM 1. A Zithromax and 1000 mg by mouth now. And I discussed the patient that I would discharge her home on metronidazole 500 mg one tablet by mouth twice a day 7 days. I also discussed the patient that she does not need to drink any alcoholic beverages while taking the Flagyl in up to 72 hours after completion. Also discussed the patient's she is to practice safe sex. And needs to discuss with her partner that she has been treated for possible STD. I did discuss the patient that if she would like to know her true results of her GC chlamydia she is more than welcome to come back to the Hospital medical records and obtained those results. Also discussed with patient that her chest irritation we will recommend Prilosec take 1 by mouth once a day for the next 2 weeks. And to follow-up with a primary care provider. Patient verbalized understanding <ELBA HERNANDEZ - Last Filed: 06/16/17 17:11> Critical care attestation.: If time is entered above; I have spent that time in minutes in the direct care of this critically ill patient, excluding procedure time. <JUAN C BUCHANAN P - Last Filed: 06/16/17 14:52> Critical care attestation.: If time is entered above; I have spent that time in minutes in the direct care of this critically ill patient, excluding procedure time. <ELBA HERNANDEZ - Last Filed: 06/16/17 17:11> ED Disposition <JUAN C BUCHANAN P - Last Filed: 06/16/17 14:52> Is pt being admited?: No Does the pt Need Aspirin: No <ELBA HERNANDEZ - Last Filed: 06/16/17 17:11> Clinical Impression: Bacterial vaginal infection, Possible exposure to STD Disposition: DC-01 TO HOME OR SELFCARE Condition: Stable Instructions: Bacterial Vaginosis (ED) Additional Instructions: Please completed all medication as prescribed. Please do not have sexual intercourse. Attention without deformity her partner that you've been tested and treated for STDs. Discussed patient that she needs to stop smoking neck and also irritate her chest discomfort. Prescriptions: metroNIDAZOLE [Metronidazole] 500 mg PO BID #14 tablet Referrals: PRIMARY CARE, [Primary Care Provider] - 3-5 Days Forms: STI Treatment and Prevention, Work/School Release Form(ED)
[2017-06-16 15:33] LABS: Bilirubin,Urine NEG (Negative); Blood,Urine NEG (Negative); Color,Urine Yellow (Yellow); Mucus,Urine 3+ /HPF; Nitrite,Urine NEG (Negative); Protein,Urine <15 mg/dL mg/dL (Negative); Urobilinogen,Urine < 2.0 mg/dL (<2.0)
[2017-06-16 15:56] LABS: HCG Qualitative,Urine Negative (Negative)
[2017-06-16] MEDS ORDERED: ZITHROMAX PO ONE (16:19)
[2017-06-16] MEDS ORDERED: ROCEPHIN IM ONE (16:20)
[2017-06-16] MEDS ORDERED: XYLOCAINE 1% MPF 5 mL INFILTRATI ONE (16:20)
[2017-06-16 16:38] VITALS: BP 124/84
== END 2017-06-16 16:37 | disposition home or self-care (01) ==
LOC: ED 11:41
DX: N76.0 Acute vaginitis (principal); B96.89 Other specified bacterial agents as the cause of diseases classified elsewhere; F17.200 Nicotine dependence, unspecified, uncomplicated
CPT/HCPCS: 81001; 81025; 87210; 87591; 93005; 93010; 96372; 99284; J0696